=== PATIENT | female | born 1955 | race Caucasian/White ===

== ENCOUNTER 2018-12-08 05:28 | Emergency (ER) | payer MEDICARE, OTHER ==
[~2018-12-08] VITALS: Ht 162.6 cm; Wt 63.5 kg
[2018-12-08 06:04] LABS: Basophils # (auto) 0.1 uL; Basophils % (auto) 0.9 % (0.0-2.0); Eosinophils # (auto) 0.1 uL; Eosinophils % (auto) 0.7 % (0.0-7.0); Hematocrit 42.5 % (36.0-46.0); Hemoglobin 14.7 g/dL (12.2-16.2); Lymphocytes # (auto) 1.2 uL; Lymphocytes % (auto) 14.4 % (10.0-50.0); Mean Corpuscular Hemoglobin 29.5 pg (28.0-32.0); Mean Corpuscular Hgb Conc. 34.6 g/dL (32.0-36.0); Mean Corpuscular Volume 85.3 fL (80.0-100.0); Monocytes # (auto) 0.8 uL; Monocytes % (auto) 9.8 % (0.0-12.0); Neutrophils # (auto) 6.1 uL; Neutrophils % (auto) 74.2 % (37.0-80.0); Nucleated Red Blood Cells % 0.1 %; Platelet Count (auto) 362 10^3/uL (140-450); Red Blood Cells 4.98 10^6/uL (4.0-5.20); Red Cell Distribution Width 13.9 % (11.8-14.3); White Blood Cell 8.2 10^3/uL (4.4-10.8)
[2018-12-08 06:18] LABS: Urine Bacteria MANY /hpf (None Seen); Urine Blood 1+ /uL (Negative); Urine Hyaline Cast FEW /lpf (0 - 2); Urine Mucus FEW (None Seen); Urine WBC 105 /hpf (0 - 5)
[2018-12-08 06:19] LABS: INR 0.95 (0.9-1.15)
[2018-12-08 06:36] LABS: Albumin 4.1 g/dL (3.4-5.0); Calcium 9.3 mg/dL (8.5-10.1); Magnesium 2.2 mg/dL (1.6-2.6); Potassium 3.8 mmol/L (3.5-5.1)
[2018-12-08 06:38] LABS: BUN/Creatinine Ratio 13.2
[2018-12-08 06:40] LABS: Bilirubin, Total 0.7 mg/dL (0.2-1.0); Total Protein 8.7 g/dL (6.4-8.2)
[2018-12-08] MEDS ORDERED: SODIUM CHLORIDE 0.9% 1,000 ML IV ONE ×2 (08:09)
[2018-12-08] MEDS ORDERED: cefTRIAXone 1GM/50ML D5W 50 ML IV ONE (08:15)
[2018-12-08 08:58] VITALS: BP 158/100
[2018-12-08] MEDS ORDERED: ONDANSETRON HCL 4 MG/2 ML VIAL IV ONE (10:00)
== END 2018-12-08 10:58 | disposition home or self-care (01) ==
LOC: ER 05:32
DX: E86.0 Dehydration (principal); N39.0 Urinary tract infection, site not specified; I11.0 Hypertensive heart disease with heart failure; I50.9 Heart failure, unspecified; R51 Headache; Z95.0 Presence of cardiac pacemaker; Z88.0 Allergy status to penicillin; Z88.6 Allergy status to analgesic agent; Z88.2 Allergy status to sulfonamides
CPT/HCPCS: 36415; 70450; 80053; 81001; 83735; 83880; 85025; 85610; 85730; 96365; 96375; 99284; J0696; J2405; J7030

== ENCOUNTER 2019-09-11 13:11 | Inpatient (IN) | payer MEDICARE, OTHER ==
[~2019-09-11] VITALS: Ht 162.6 cm; Wt 64.5 kg
[2019-09-11] MEDS ORDERED: SODIUM CHLORIDE 0.9% 1,000 ML IV ONE (15:29)
[2019-09-11] MEDS ORDERED: SODIUM CHLORIDE 0.9% 500 ML IV ONE (15:29)
[2019-09-11 15:42] LABS: Hematocrit 43.6 % (36.0-46.0); Hemoglobin 14.6 g/dL (12.2-16.2); Mean Corpuscular Hemoglobin 29.1 pg (28.0-32.0); Mean Corpuscular Hgb Conc. 33.5 g/dL (32.0-36.0); Mean Corpuscular Volume 86.8 fL (80.0-100.0); Platelet Count (auto) 238 10^3/uL (140-450); Red Blood Cells 5.02 10^6/uL (4.0-5.20); Red Cell Distribution Width 14.1 % (11.8-14.3)
[2019-09-11 15:56] LABS: Band Neutrophils % (manual) 0; Basophils % (manual) 0 (0.0-2.0); Blast Cells 0; Metamyelocytes % 0; Myelocytes % 0; Promyelocytes % 0; Reactive Lymphocytes 0
[2019-09-11 15:59] LABS: Albumin 3.8 g/dL (3.4-5.0); Calcium 8.7 mg/dL (8.5-10.1); Magnesium 2.3 mg/dL (1.6-2.6); Potassium 3.9 mmol/L (3.5-5.1)
[2019-09-11 16:03] LABS: Bilirubin, Total 0.3 mg/dL (0.2-1.0); Total Protein 8.3 g/dL (6.4-8.2)
[2019-09-11 16:18] LABS: Eosinophils % (manual) 1 (0-7); Lymphocytes % (manual) 19 (10.0-50.0); Monocytes % (manual) 20 (0-12)
[2019-09-11 19:13] LABS: Urine Bacteria NONE SEEN /hpf (None Seen); Urine Blood Negative /uL (Negative); Urine Specific Gravity 1.016 (1.001-1.035); Urine WBC 4 /hpf (0 - 5)
[2019-09-11] MEDS ORDERED: ACETAMINOPHEN 325 MG TAB PO ONE (21:45)
[2019-09-12] MEDS ORDERED: cefTRIAXone 1GM/50ML D5W 50 ML IV ONE ×2 (01:30→13:15)
[2019-09-12] MEDS ORDERED: SODIUM CHLORIDE 0.9% 1,000 ML IV SCH (01:44)
[2019-09-12] MEDS ORDERED: DOCUSATE SOD 100 MG CAP PO PRN (01:45)
[2019-09-12] MEDS ORDERED: TEMAZEPAM 15 MG CAP PO PRN (01:45)
[2019-09-12] MEDS ORDERED: LORazepam 0.5 MG TAB PO PRN (01:45)
[2019-09-12] MEDS ORDERED: ACETAMINOPHEN 500 MG TAB PO PRN (01:45)
[2019-09-12] MEDS ORDERED: ONDANSETRON HCL 4 MG/2 ML VIAL IV PRN (01:45)
[2019-09-12 04:31] VITALS: BP 154/92
[2019-09-12] MEDS ORDERED: ALBUTEROL SULF HFA 90MCG INH 200DOSE IN SCH (06:00)
--- NOTE | 2019-09-12 08:00 | NUR ---
Opening Shift Note Assumed care of patient, awake and alert. No S/S of distress/SOB or pain. Instructed on POC and to call for assist PRN, will continue to monitor for changes Q1hr and PRN.
[2019-09-12 08:57] VITALS: BP 134/69
[2019-09-12] MEDS: CHOLECALCIFEROL (VITD3) 1,000UNIT=25mCg TAB PO SCH (09:44)
[2019-09-12] MEDS: ENOXAPARIN SOD 40 MG/0.4 ML SYRINGE SC SCH (09:45)
[2019-09-12] MEDS: ZINC SULFATE 220mg CAP or TAB PO SCH (09:45)
[2019-09-12] MEDS: ASCORBIC ACID 1,000 MG TAB PO SCH (09:45)
[2019-09-12] MEDS: DOXYCYCLINE 100 MG TAB/CAP PO SCH ×2 (09:45→21:41)
[2019-09-12] MEDS ORDERED: AMPICILLIN & SULBACTAM SODIUM 3 GM in SODIUM CHL 0.9% 100 ML IV SCH (10:45)
[2019-09-12 11:49] LABS: CRP High Sensitivity 0.12 mg/dL (< 0.3)
--- NOTE | 2019-09-12 12:00 | NUR ---
ROUNDING MD LEVIN AT BEDSIDE. ALL QUESTIONS AND CONCERNS ADDRESSED AT THIS TIME
[2019-09-12 12:41] VITALS: BP 169/94
[2019-09-12] MEDS ORDERED: amLODIPine BESYLATE 5 MG TAB PO ONE (13:45)
[2019-09-12] MEDS ORDERED: hydrALAZINE HCL 10 MG TAB PO PRN (13:45)
[2019-09-12] MEDS: metroNIDAZOLE 500MG/100ML 100 ML IV SCH ×2 (14:00→21:41)
[2019-09-12] MEDS: ACETAMINOPHEN 325 MG TAB PO PRN ×2 (16:33→23:31)
[2019-09-12 16:50] VITALS: BP 162/98
--- NOTE | 2019-09-12 17:42 | NUR ---
PRN APRESOLINE ADMINISTERED CURRENT BP 162/84
--- NOTE | 2019-09-12 18:50 | NUR ---
BP RECHECK 148/77
--- NOTE | 2019-09-12 20:00 | NUR ---
Opening Shift Note Assumed care of patient. Awake, alert and oriented x4. No S/S of distress/SOB or pain. Instructed on POC and to call for assist PRN. Bed locked, in lowest position, call light within reach, side rails up x2. Will continue to monitor for changes Q1hr and PRN.
[2019-09-12 22:00] VITALS: BP 158/86
[2019-09-13 05:00] VITALS: BP 119/73
[2019-09-13] MEDS: metroNIDAZOLE 500MG/100ML 100 ML IV SCH (05:43)
[2019-09-13] MEDS: ACETAMINOPHEN 325 MG TAB PO PRN (05:44)
[2019-09-13 07:12] LABS: Basophils # (auto) 0 10 ^3/uL (0-0.2); Basophils % (auto) 0.8 % (0.0-2.0); Eosinophils # (auto) 0.1 10 ^3/uL (0-0.8); Eosinophils % (auto) 2.7 % (0.0-7.0); Hematocrit 41.2 % (36.0-46.0); Hemoglobin 13.9 g/dL (12.2-16.2); Lymphocytes # (auto) 0.9 10 ^3/uL (0.4-5.4); Lymphocytes % (auto) 27.3 % (10.0-50.0); Mean Corpuscular Hemoglobin 29.2 pg (28.0-32.0); Mean Corpuscular Hgb Conc. 33.8 g/dL (32.0-36.0); Mean Corpuscular Volume 86.4 fL (80.0-100.0); Monocytes # (auto) 0.5 10 ^3/uL (0-1.3); Monocytes % (auto) 14.8 % (0.0-12.0); Neutrophils # (auto) 1.7 10 ^3/uL (1.6-8.6); Neutrophils % (auto) 54.4 % (37.0-80.0); Nucleated Red Blood Cells % 0.1 %; Platelet Count (auto) 220 10^3/uL (140-450); Red Blood Cells 4.77 10^6/uL (4.0-5.20); Red Cell Distribution Width 14.1 % (11.8-14.3); White Blood Cell 3.2 10^3/uL (4.4-10.8)
[2019-09-13 07:27] LABS: Albumin 3.3 g/dL (3.4-5.0); Calcium 8.8 mg/dL (8.5-10.1); Potassium 3.8 mmol/L (3.5-5.1)
[2019-09-13 07:31] LABS: BUN/Creatinine Ratio 16.8; Bilirubin, Total 0.2 mg/dL (0.2-1.0)
[2019-09-13] MEDS: ZINC SULFATE 220mg CAP or TAB PO SCH (08:31)
[2019-09-13] MEDS: DOXYCYCLINE 100 MG TAB/CAP PO SCH (08:32)
[2019-09-13] MEDS: ENOXAPARIN SOD 40 MG/0.4 ML SYRINGE SC SCH (08:32)
[2019-09-13] MEDS: ASCORBIC ACID 1,000 MG TAB PO SCH (08:32)
[2019-09-13] MEDS: CHOLECALCIFEROL (VITD3) 1,000UNIT=25mCg TAB PO SCH (08:32)
[2019-09-13 08:36] VITALS: BP 139/80
[2019-09-13] MEDS ORDERED: cefTRIAXone 1GM/50ML D5W 50 ML IV SCH ×2 (09:00→10:00)
[2019-09-13] MEDS ORDERED: amLODIPine BESYLATE 5 MG TAB PO SCH (10:00)
[2019-09-13 10:02] LABS: Hepatitis B Surface Antibody Negative
[2019-09-13 10:34] LABS: Hepatitis A Total Antibody Negative
[2019-09-13 11:09] LABS: Hepatitis B Core Total AB Negative; Hepatitis B Surface Antigen Negative (Negative); Hepatitis C Antibody Negative (Negative)
--- NOTE | 2019-09-13 11:29 | NUR ---
ROUNDING MD Liu LEVIN AT BEDSIDE. ALL QUESTIONS AND CONERNS ADDRESSED AT THIS TIME.
[2019-09-13 12:31] VITALS: BP 139/80
[2019-09-13 13:00] VITALS: BP 149/92
--- NOTE | 2019-09-13 15:00 | NUR ---
Discharge instructions given as ordered. Encourage to follow up with PMD as instructed. All questions and concerns addressed. Patient verbalized understanding. Medication reconciliation form completed and copy given to patient. . IV removed with catheter intact, pressure dressing applied. Telemetry unit returned to ICU. Patient taken to vehicle via wheelchair with all personal belongings, accompanied by staff and family member. No distress noted at time of departure.
== END 2019-09-13 14:00 | disposition home or self-care (01) | DRG 178 ==
LOC: ER 13:11 → OVERFLOW 13:12 → EAST 09-12 03:25
PROVIDERS: ADMIT Hospitalist; ATTEND Internal Medicine
DX: U07.1 COVID-19 (principal); N39.0 Urinary tract infection, site not specified; I50.22 Chronic systolic (congestive) heart failure; E86.0 Dehydration; K80.20 Calculus of gallbladder without cholecystitis without obstruction; B34.9 Viral infection, unspecified; I11.0 Hypertensive heart disease with heart failure; Z82.49 Family history of ischemic heart disease and other diseases of the circulatory system; Z90.5 Acquired absence of kidney; Z87.440 Personal history of urinary (tract) infections; Z88.5 Allergy status to narcotic agent; Z88.0 Allergy status to penicillin; Z88.2 Allergy status to sulfonamides
CPT/HCPCS: 36415; 71045; 76705; 80053; 80320; 81001; 82728; 83605; 83615; 83735; 83880; 84443; 84484; 85007; 85025; 85027; 85379; 85652; 86141; 86704; 86706; 86708; 86803; 87070; 87086; 87340; 87804; 87880; 93005; G0378; J0696; J2405; J3490